=== PATIENT | male | born 1970 | race Caucasian/White ===

== ENCOUNTER 2016-12-13 19:17 | Inpatient (IN) | payer BC ==
[2016-12-13] MEDS ORDERED: VANCOMYCIN HCL 1,500 MG in 0.9 % SODIUM CHLORIDE 500ML 500 ML IVPB ONE (20:02)
[2016-12-13 20:12] LABS: BASO % 0.3 % (0-6); EOS % 2.1 % (0-6); GRAN % 68.9 % (47-80); HEMATOCRIT 43.3 % (42.0-52.0); HEMOGLOBIN 14.9 gm/dl (14.0-18.0); LYMPH % 20.1 % (16-45); MEAN CELL VOLUME 92.1 fl (81-97); MEAN CORPUSCULAR HEMOGLOBIN 31.7 pg (27-33); MEAN CORPUSCULAR HGB CONC 34.4 g/dl (32-36); MEAN PLATELET VOLUME 9.1 fl (7.4-10.4); MONO % 8.6 % (0-9); PLATELET COUNT 317 K/uL (130-400); RED CELL DISTRIBUTION WIDTH 13.2 % (11.5-14.5)
--- NOTE | 2016-12-13 20:16 | Emergency Department Record ---
History of Present Illness - General Chief Complaint: Wound, check Stated Complaint: WOUND CHECK LEFT KNEE Time Seen by Provider: 12/13/16 19:35 Source: Patient Mode of arrival: Ambulatory Limitations: No limitations - History of Present Illness Initial Comments: pt had a splinter in his knee since last monday whish has gotten progressively worse, it became infected. pt was started on bactrim 4 days ago and then was started on keflex yesterday. it conts to worse. culture shows MRSA. redness is spreading Onset/Timin -: Days(s) Initial Visit For: Abscess, Cellulitis Returns Today for: Wound recheck Symptoms Since Prior Visit: Worsening discharge, Worsening redness Associated Symptoms: None Treatments Prior to Arrival: Given antibiotics on initial visit - Related Data Allergies Allergy/AdvReac Type Severity Reaction Status Date / Time No Known Allergies Allergy Unverified 12/09/16 14:57 Travel Screening - Travel/Exposure Within Last 30 Days Have you traveled within the last 30 days?: No Review of Systems Reviewed: No additional complaints except as noted below Constitutional: Reports: As per HPI. Denies: Chills, Fever, Malaise, Night sweats, Weakness, Weight change Eyes: Reports: As per HPI. Denies: Eye discharge, Eye pain, Photophobia, Vision change ENT: Reports: As per HPI. Denies: Congestion, Dental pain, Ear pain, Epistaxis , Hearing loss, Throat pain Respiratory: Reports: As per HPI. Denies: Cough, Dyspnea, Hemoptysis, Stridor, Wheezes Cardiovascular: Reports: As per HPI. Denies: Arrhythmia, Chest pain, Dyspnea on exertion, Edema, Murmurs, Orthopnea, Palpitations, Paroxysmal nocturnal dyspnea, Rheumatic Fever, Syncope Endocrine: Reports: As per HPI. Denies: Fatigue, Heat or cold intolerance, Polydipsia, Polyuria Gastrointestinal: Reports: As per HPI. Denies: Abdominal pain, Constipation, Diarrhea, Hematemesis, Hematochezia, Melena, Nausea, Vomiting Genitourinary: Reports: As per HPI. Denies: Dysuria, Frequency, Hematuria, Incontinence, Retention, Testicular pain, Testicular mass, Urgency Musculoskeletal: Reports: As per HPI. Denies: Arthralgia, Back pain, Gout, Joint swelling, Myalgia, Neck pain Skin: Reports: As per HPI. Denies: Bruising, Change in color, Change in hair/ nails, Lesions, Pruritus, Rash Neurological: Reports: As per HPI. Denies: Abnormal gait, Confusion, Headache, Numbness, Paresthesias, Seizure, Tingling, Tremors, Vertigo, Weakness Psychiatric: Reports: As per HPI. Denies: Anxiety, Auditory hallucinations, Depression, Homicidal thoughts, Suicidal thoughts, Visual hallucinations Hematological/Lymphatic: Reports: As per HPI. Denies: Anemia, Blood Clots, Easy bleeding, Easy bruising, Swollen glands Past Medical History - SOCIAL HISTORY Smoking Status: Current every day smoker Alcohol Use: None Drug Use: None - RESPIRATORY Hx Respiratory Disorders: No - CARDIOVASCULAR Hx Cardio Disorders: No - NEURO Hx Neuro Disorders: No - GI Hx GI Disorders: No - Hx Genitourinary Disorders: No - ENDOCRINE Hx Endocrine Disorders: No - MUSCULOSKELETAL Hx Musculoskeletal Disorders: No - PSYCH Hx Psych Problems: No - HEMATOLOGY/ONCOLOGY Hx Hematology/Oncology Disorders: No Family Medical History Any Significant Family History?: Yes Hx Diabetes: Brother/Sister, Grandparents Hx Heart Disease: Father Hx HTN: Father Physical Exam - General General Appearance: Alert, Oriented x3, Cooperative, Mild distress - Head Head exam: Normal inspection - Eye Eye exam: Normal appearance, PERRL, EOMI Pupils: Normal accommodation - ENT ENT exam: Normal exam, Mucous membranes moist, Normal external ear exam, Normal orophraynx Ear exam: Normal external inspection. negative: External canal tenderness Nasal Exam: Normal inspection. negative: Discharge, Sinus tenderness Mouth exam: Normal external inspection, Tongue normal Teeth exam: Normal inspection. negative: Dental caries Throat exam: Normal inspection. negative: Tonsillar erythema, Tonsillar exudate - Neck Neck exam: Normal inspection, Full ROM. negative: Tenderness - Respiratory Respiratory exam: Normal lung sounds bilaterally. negative: Respiratory distress - Cardiovascular Cardiovascular Exam: Regular rate, Normal rhythm, Normal heart sounds - GI/Abdominal GI/Abdominal exam: Soft, Normal bowel sounds. negative: Tenderness - Rectal Rectal exam: Deferred - exam: Deferred - Extremities Extremities exam: Normal inspection, Full ROM, Normal capillary refill. negative: Tenderness - Back Back exam: Reports: Normal inspection, Full ROM. Denies: Muscle spasm, Rash noted, Tenderness - Neurological Neurological exam: Alert, CN II-XII intact, Normal gait, Oriented X3 - Psychiatric Psychiatric exam: Normal affect, Normal mood - Skin Skin exam: Dry, Erythema, Intact, Normal color, Warm Type of lesion: Abscess Distribution of rash: LLE Description of rash: Discharge, Erythematous, Tenderness Course Vital Signs 12/13/16 19:42 Temperature 98.6 F Pulse Rate 89 Respiratory 18 Rate Blood Pressure 145/77 Pulse Ox 99 Medical Decision Making - Lab Data Result diagrams: 12/13/16 19:55 12/13/16 19:55 Disposition Disposition: Admit Clinical Impression: Cellulitis of knee, left Disposition: Still a Patient at [facility] Decision to Admit: Admit from ER Decision to Admit Date: 12/13/16 Decision to Admit Time: 21:11 Forms: Patient Portal Access
[2016-12-13 20:22] LABS: BLOOD UREA NITROGEN 17 mg/dL (9-20); CREATININE 0.9 mg/dL (0.66-1.25); EST GLOMERULAR FILTRATION RATE > 60 ml/min; GLUCOSE,RANDOM 100 mg/dL (70-110)
[2016-12-13] MEDS ORDERED: HYDROCODONE/APAP 5/325MG TABLET PO PRN (21:28)
[2016-12-13] MEDS ORDERED: ACETAMINOPHEN 500 MG TABLET PO PRN (21:28)
[2016-12-13] MEDS ORDERED: VANCOMYCIN HCL 1,500 MG in 0.9 % SODIUM CHLORIDE 500ML 500 ML IVPB SCH (21:28)
[2016-12-13] MEDS ORDERED: TEMAZEPAM 15 MG CAPSULE PO PRN (21:28)
[2016-12-13] MEDS ORDERED: IBUPROFEN 600 MG TABLET PO PRN (21:28)
[2016-12-14] MEDS: VANCOMYCIN HCL 1,500 MG in 0.9 % SODIUM CHLORIDE 500ML 500 ML IVPB SCH ×2 (08:07→20:56)
[2016-12-14] MEDS: ENOXAPARIN 40 MG/0.4 ML SYR SQ SCH (11:40)
--- NOTE | 2016-12-14 16:22 | History & Physical ---
History of Present Illness - Date of Service Date of Service for History & Physical: 12/15/16 - History of Present Illness Admitting Diagnosis: MRSA cellulitis History of Present Illness: Rufus Riddle is a 46 y/o male admitted for MRSA cellulitis after failed outpatient treatment of Bactrim and Keflex. Reports about 8 days ago was cutting wood near [employer] and thinks may have gotten a sliver in his left knee. No previous hx DM, PVD, immunocompromising conditions. Time line as follows: 12/09- seen in [facility] for infection, started on Bactrim DS BID, Rocephin 1Gm given x 1, left knee xray (mild degenerative arthritis, soft tissue swelling) and culture taken 12/12- seen in [facility] for worsening of symptoms, started on Keflex, reviewed culture + MRSA, advised go to ER if no improvement after 24 hours 12/13- presented to ER for no improvement PCP: Dr. Portillo PMX: none Past surgical history includes: umbilical hernia repair Travel Screening - Travel/Exposure Within Last 30 Days Have you traveled within the last 30 days?: No Review of Systems Constitutional: Reports: As per HPI. Denies: Chills, Fever, Malaise, Night sweats, Weakness, Weight change Eyes: Reports: As per HPI. Denies: Eye discharge, Eye pain, Photophobia, Vision change ENT: Reports: As per HPI. Denies: Congestion, Dental pain, Ear pain, Epistaxis , Hearing loss, Throat pain Respiratory: Reports: As per HPI. Denies: Cough, Dyspnea, Hemoptysis, Stridor, Wheezes Cardiovascular: Reports: As per HPI. Denies: Arrhythmia, Chest pain, Dyspnea on exertion, Edema, Murmurs, Orthopnea, Palpitations, Paroxysmal nocturnal dyspnea, Rheumatic Fever, Syncope Endocrine: Reports: As per HPI. Denies: Fatigue, Heat or cold intolerance, Polydipsia, Polyuria Gastrointestinal: Reports: As per HPI. Denies: Abdominal pain, Constipation, Diarrhea, Hematemesis, Hematochezia, Melena, Nausea, Vomiting Genitourinary: Reports: As per HPI. Denies: Dysuria, Frequency, Hematuria, Incontinence, Retention, Testicular pain, Testicular mass, Urgency Musculoskeletal: Reports: As per HPI. Denies: Arthralgia, Back pain, Gout, Joint swelling, Myalgia, Neck pain Skin: Reports: As per HPI. Denies: Bruising, Change in color, Change in hair/ nails, Lesions, Pruritus, Rash Neurological: Reports: As per HPI. Denies: Abnormal gait, Confusion, Headache, Numbness, Paresthesias, Seizure, Tingling, Tremors, Vertigo, Weakness Psychiatric: Reports: As per HPI. Denies: Anxiety, Auditory hallucinations, Depression, Homicidal thoughts, Suicidal thoughts, Visual hallucinations Hematological/Lymphatic: Reports: As per HPI. Denies: Anemia, Blood Clots, Easy bleeding, Easy bruising, Swollen glands Past Medical History - SOCIAL HISTORY Smoking Status: Current every day smoker - RESPIRATORY Hx Respiratory Disorders: No - CARDIOVASCULAR Hx Cardio Disorders: No - NEURO Hx Neuro Disorders: No - GI Hx GI Disorders: No - Hx Genitourinary Disorders: No - ENDOCRINE Hx Endocrine Disorders: No - MUSCULOSKELETAL Hx Musculoskeletal Disorders: No - PSYCH Hx Psych Problems: No - HEMATOLOGY/ONCOLOGY Hx Hematology/Oncology Disorders: No Family Medical History Any Significant Family History?: Yes Hx Diabetes: Brother/Sister, Grandparents Hx Heart Disease: Father Hx HTN: Father H&P Meds/Allergies - Allergies Allergies: Allergies Allergy/AdvReac Type Severity Reaction Status Date / Time No Known Allergies Allergy PT UNSURE Verified 12/14/16 11:39 OF REACTION - Active Medications Active Medications: Current Medications Acetaminophen (Tylenol 500mg Tab) 1,000 mg PO Q6H PRN PRN Reason: PAIN/TEMP Acetaminophen/Hydrocodone Bitart ([place] 5mg/325mg) 1 each PO Q6H PRN PRN Reason: Pain - Moderate (5-7) Enoxaparin Sodium (Lovenox) 40 mg SQ DAILY [facility] Last Admin: 12/14/16 11:40 Dose: Not Given Vancomycin HCl 1,500 mg/ (Sodium Chloride) 500 mls @ 250 mls/60 min IVPB Q12H LORA Stop: 12/19/16 08:16 Last Admin: 12/14/16 08:07 Dose: 250 mls/60 min Ibuprofen (Motrin 600mg) 600 mg PO Q6H PRN PRN Reason: Pain - Mild (1-4) Temazepam (Restoril) 15 mg PO QHS PRN PRN Reason: INSOMNIA Last Admin: 12/14/16 03:00 Dose: 15 mg Physical Exam - Vital Signs Vital Signs: Vital Signs - Last 24 Hrs Temp Pulse Pulse Resp BP BP Pulse Ox 12/14/16 13:00 98 F 66 16 108/62 98 12/14/16 09:22 97.5 F L 110/63 12/14/16 08:12 60 16 12/14/16 05:28 97.5 F L 66 18 110/63 97 12/13/16 22:11 69 20 12/13/16 21:28 97.8 F 69 20 120/79 99 - General General Appearance: Alert, Oriented x3, Cooperative, Mild distress Limitations: No limitations - Head Head exam: Normal inspection - Eye Eye exam: Normal appearance, PERRL, EOMI Pupils: Normal accommodation - ENT ENT exam: Normal exam, Mucous membranes moist, Normal external ear exam, Normal orophraynx Ear exam: Normal external inspection. negative: External canal tenderness Nasal Exam: Normal inspection. negative: Discharge, Sinus tenderness Mouth exam: Normal external inspection, Tongue normal Teeth exam: Normal inspection. negative: Dental caries Throat exam: Normal inspection. negative: Tonsillar erythema, Tonsillar exudate - Neck Neck exam: Normal inspection, Full ROM. negative: Tenderness - Respiratory Respiratory exam: Normal lung sounds bilaterally. negative: Respiratory distress - Cardiovascular Cardiovascular Exam: Regular rate, Normal rhythm, Normal heart sounds Peripheral Pulses: 3+: Dorsalis Pedis (R), Dorsalis Pedis (L) - GI/Abdominal GI/Abdominal exam: Soft, Normal bowel sounds. negative: Tenderness - Rectal Rectal exam: Deferred - exam: Deferred - Extremities Extremities exam: Normal inspection, Full ROM, Normal capillary refill. negative: Tenderness - Back Back exam: Reports: Normal inspection, Full ROM. Denies: Muscle spasm, Rash noted, Tenderness - Neurological Neurological exam: Alert, CN II-XII intact, Normal gait, Oriented X3 - Psychiatric Psychiatric exam: Normal affect, Normal mood - Skin Skin exam: Dry, Erythema (left patellar surface with fluctuant induration, + purulent exudate, warmth and erythema to surrounding tissue, no effusion or joint laxity noted. Erythema has receeded from initial boarders as drawn in ER) , Intact, Normal color, Warm Type of lesion: Abscess Distribution of rash: LLE Description of rash: Discharge, Erythematous, Tenderness Results - Labs Result Diagrams: 12/15/16 06:05 12/13/16 19:55 Labs Last 24 Hours: Laboratory Results - last 24 hr 12/13/16 12/14/16 21:50 06:50 Vancomycin Peak 24.1 Vancomycin Trough Cancelled 5.2 VTE H&P Assessment - Risk for VTE Risk for VTE: Yes Risk Level: Low Risk Assessment Date: 12/14/16 Risk Assessment Time: 16:27 VTE Orders Placed or Will Be Placed: Yes Plan - Inpatient Certification Inpatient Certification: Admit to inpatient care: Based on my medical assessment, after consideration of patient's risk factors (age, co-morbidities and patient presenting symptoms and acuity), I expect that this patient will remain in the hospital greater than or equal to two midnights and that the services needed warrant inpatient care because: Patient Risk Factors: [failed outpatient treatment for cellulitis] Estimated length of stay: [48-72 hours] The patient may reasonably be expected to be discharged or transferred to a hospital within 96 hours after admission to [facility]. Services needed: [IV antibiotics] Post hospital care (if known): [] I certify that my determination is in accordance with my understanding of Medicare requirements for reasonable and necessary inpatient services. 12/14/16 16:31 - Detailed Diagnosis and Plan (1) Cellulitis of knee, left Current Visit: Yes Status: Acute Base Code: L03.116 - CELLULITIS OF LEFT LOWER LIMB Comment: 12/14- Cellulitis to left knee, failed outpatient treatment using Bactrim DS 12/09 followed with the addition of Keflex 12/12. Marked improvement to area after initiating 12/14- Vancomycin IVPB 1500mg BID. Labs normal, afebrile , VS stable. Culture of left knee exudate sensitive to Bactrim, however failed outpatent treatment. Will have PICC placed and continue Vancomycin as has clinical improvement since initiation. Pharm D to dose Vanco, CBC in am. Pain controlled using [place] 5/325mg q 6 hr PRN and Ibuprofen 600mg Q 6 hrs PRN. (2) DVT prophylaxis Current Visit: Yes Status: Acute Base Code: [id number] - Comment: 12/14- Lovenox 40mg SQ QD (3) Full code status Current Visit: Yes Status: Acute Base Code: Z78.9 - OTHER SPECIFIED HEALTH STATUS Comment: 12/14- will remain full code during this hospitalization
--- NOTE | 2016-12-14 21:17 | Discharge Summary ---
Providers Discharge Summary Date: 12/15/16 Date of admission: 12/13/16 21:25 Expected Date of Discharge: 12/15/16 Attending physician: AR MEJÍA Primary care physician: AR MEJÍA Physical Exam - Vital Signs Vital Signs: Vital Signs - Last 24 Hrs Temp Pulse Pulse Resp BP BP Pulse Ox 12/14/16 20:47 97.1 F L 76 20 110/67 86 L 12/14/16 13:00 98 F 66 16 108/62 98 12/14/16 09:22 97.5 F L 110/63 12/14/16 08:12 60 16 12/14/16 05:28 97.5 F L 66 18 110/63 97 12/13/16 22:11 69 20 12/13/16 21:28 97.8 F 69 20 120/79 99 - General General Appearance: Alert, Oriented x3, Cooperative, Mild distress Limitations: No limitations - Head Head exam: Normal inspection - Eye Eye exam: Normal appearance, PERRL, EOMI Pupils: Normal accommodation - ENT ENT exam: Normal exam, Mucous membranes moist, Normal external ear exam, Normal orophraynx Ear exam: Normal external inspection. negative: External canal tenderness Nasal Exam: Normal inspection. negative: Discharge, Sinus tenderness Mouth exam: Normal external inspection, Tongue normal Teeth exam: Normal inspection. negative: Dental caries Throat exam: Normal inspection. negative: Tonsillar erythema, Tonsillar exudate - Neck Neck exam: Normal inspection, Full ROM. negative: Tenderness - Respiratory Respiratory exam: Normal lung sounds bilaterally. negative: Respiratory distress - Cardiovascular Cardiovascular Exam: Regular rate, Normal rhythm, Normal heart sounds Peripheral Pulses: 3+: Dorsalis Pedis (R), Dorsalis Pedis (L) - GI/Abdominal GI/Abdominal exam: Soft, Normal bowel sounds. negative: Tenderness - Rectal Rectal exam: Deferred - exam: Deferred - Extremities Extremities exam: Normal inspection, Full ROM, Normal capillary refill. negative: Tenderness - Back Back exam: Reports: Normal inspection, Full ROM. Denies: Muscle spasm, Rash noted, Tenderness - Neurological Neurological exam: Alert, CN II-XII intact, Normal gait, Oriented X3 - Psychiatric Psychiatric exam: Normal affect, Normal mood - Skin Skin exam: Dry, Erythema (left patellar surface with fluctuant induration, + purulent exudate, warmth and erythema to surrounding tissue, no effusion or joint laxity noted. Erythema has receeded from initial boarders as drawn in ER) , Intact, Normal color, Warm Type of lesion: Abscess Distribution of rash: LLE Description of rash: Discharge, Erythematous (significantlt improved, iduration improved, no outlaying erythema outside of surrounding local tissue, exudate today serous), Tenderness (improved from yesterday) Hospitalization - Hospitalization Admission Diagnosis: MRSA cellulitis - Problem List/Discharge Diagnosis (1) Cellulitis of knee, left Current Visit: Yes Status: Acute Base Code: L03.116 - CELLULITIS OF LEFT LOWER LIMB Comment: 12/15- Marked improvement in wound, outlaying erythema and warmth resolved, mild warmth and erythema to localized surrounding tissues at wound base remain, exudate serous. - PICC line placed 12/14, CXR confirmed placement of tip in SVC - PICC dressing clean, no evidence infection or irritation around insertion site. - CBC normal today, afebrile - Continue Vacomycin IVPB 1500mg BID x 10 days as outpatient - follow up PCP in 1 week - no concerns for septic joint at this time (2) DVT prophylaxis Current Visit: Yes Status: Acute Base Code: [id number] - Comment: 12/15- Lovenox 40mg SQ QD during hospitalization (3) Full code status Current Visit: Yes Status: Acute Base Code: Z78.9 - OTHER SPECIFIED HEALTH STATUS Comment: 12/15- will remain full code during this hospitalization - Hospitalization Course Disposition: Home, Self-Care Hospital Course: Microbiology 12/09/16 15:30 Wound - Leg, Left Aerobic Culture - Final- MRSA Selected Entries 12/14/16 12/14/16 05:28 20:47 Temperature 97.5 F L 97.1 F L Blood Pressure 110/63 110/67 [Right Arm] Laboratory Tests 12/13/16 19:55 WBC 10.0 Procedures: Imaging and X-Rays 12/14/16 14:53 CXR [CHEST AP or PA ONLY] [RAD] Stat Condition at Discharge: (1) Good VTE Discharge VTE Reason For No Overlap Therapy: Not Indicated Discharge Medications - Discharge Medications Prescriptions: Ibuprofen [Motrin 600Mg] 600 mg PO Q6H PRN #60 tablet PRN Reason: Pain - Mild (1-4) Vancomycin/0.9 % Sod Chloride [Vanco 1.5 gm/500 ml-0.9% NaCl] 1.5 gm IV BIDIV 10 Days Home Medications: Ambulatory Orders Ibuprofen [Motrin 600Mg] 600 mg PO Q6H PRN #60 tablet 12/15/16 [Last Taken Unknown] Vancomycin/0.9 % Sod Chloride [Vanco 1.5 gm/500 ml-0.9% NaCl] 1.5 gm IV BIDIV 10 Days 12/15/16 [Last Taken Unknown] Discharge Plan - Discharge Instructions Activity at Discharge: Increase Activity as Tolerated Diet at Discharge: Regular Diet Wound Primary Dressing Type: Gauze Roll/Wrap Dressing Change: Twice a day
[2016-12-15 06:19] LABS: BASO % 0.5 % (0-6); EOS % 3.9 % (0-6); HEMATOCRIT 40.4 % (42.0-52.0); HEMOGLOBIN 13.9 gm/dl (14.0-18.0); LYMPH % 31.9 % (16-45); MEAN CORPUSCULAR HEMOGLOBIN 31.6 pg (27-33); MEAN CORPUSCULAR HGB CONC 34.4 g/dl (32-36); MEAN PLATELET VOLUME 9.4 fl (7.4-10.4); MONO % 9.7 % (0-9); PLATELET COUNT 304 K/uL (130-400); RED BLOOD COUNT 4.39 M/uL (4.40-5.70); RED CELL DISTRIBUTION WIDTH 13.2 % (11.5-14.5)
--- NOTE | 2016-12-15 07:50 | RADIOLOGY REPORT ---
EXAM: CHEST HISTORY: DIFFICULTY IN BREATHING. TECHNIQUE: A PA view of the chest was performed. FINDINGS: The heart size is normal. Right PICC line in place. There is healed granulomatous disease. No acute type infiltrate or pleural effusion. IMPRESSION: 1. RIGHT SIDED PICC LINE TIP IS IN THE SUPERIOR VENA CAVA. 2. HEALED GRANULOMATOUS DISEASE. JOB NUMBER: [id number] MTDD
[2016-12-15] MEDS: VANCOMYCIN HCL 1,500 MG in 0.9 % SODIUM CHLORIDE 500ML 500 ML IVPB SCH (08:11)
[2016-12-15] MEDS ORDERED: 0.9 % SODIUM CHLORIDE 10ML SYR IVP ONE (08:25)
[2016-12-15] MEDS ORDERED: HEPARIN SODIUM FLUSH 100 UNITS/ML SYR 5ML IV ONE (08:25)
[2016-12-15] MEDS: ENOXAPARIN 40 MG/0.4 ML SYR SQ SCH (10:53)
== END 2016-12-15 12:16 | disposition home or self-care (01) | DRG 603 ==
LOC: ER 19:17 → MEDSURG 21:25 → OBSVTOIN 21:25
PROVIDERS: ADMIT Family Medicine; ATTEND Family Medicine
DX: L03.116 Cellulitis of left lower limb (principal); A49.02 Methicillin resistant Staphylococcus aureus infection, unspecified site; F17.200 Nicotine dependence, unspecified, uncomplicated; Z78.9 Other specified health status
CPT/HCPCS: 71010; 80048; 80202; 85025; 85027; 96365; 99223; 99239; 99285; J7040